=== PATIENT | female | born 1945 | race African-American/Black ===

== ENCOUNTER 2023-01-21 09:15 | Inpatient (IN) | payer OTHER, MEDICAID ==
[~2023-01-21] VITALS: Ht 165.1 cm; Wt 60.3 kg
[2023-01-21] MEDS ORDERED: MORPHINE SULFATE 2 MG/ML SYR IVP STA (09:19)
[2023-01-21] MEDS ORDERED: NACL 0.9% 500 ML IV ONE (09:20)
[2023-01-21] MEDS ORDERED: ONDANSETRON 4 MG/2 ML VIAL IVP ONE (09:20)
[2023-01-21 09:22] VITALS: BP_SYST 127; BP_SYST 68; BP_DIAS 39; BP_DIAS 65; PULSE 109; PULSE 88; RESP 18; TEMP 97.7; O2SAT 96
[2023-01-21] MEDS ORDERED: MIDODRINE 5 MG TAB PO STA (09:50)
[2023-01-21] MEDS ORDERED: ACETAMINOPHEN EXTRA STRENGTH 500 MG TAB PO ONE (10:05)
[2023-01-21 10:14] VITALS: O2SAT 100
[2023-01-21 10:17] LABS: BASOPHILS # (AUTO) 0.1 K/uL (0.00-0.22); BASOPHILS % (AUTO) 0.7 % (0.0-2.0); HEMATOCRIT 20.4 % (36-48); LYMPHOCYTES # (AUTO) 0.5 K/uL (2.5-16.5); LYMPHOCYTES % (AUTO) 4.1 % (20.5-51.1); MEAN CORPUSCULAR HEMOGLOBIN 24 pg (27-31); MEAN CORPUSCULAR HGB CONC 33 g/dL (33-37); MEAN CORPUSCULAR VOLUME 72.3 fL (80-94); MONOCYTES % (AUTO) 7.6 % (1.7-9.3); NEUTROPHILS # (AUTO) 11.7 K/uL (1.8-7.7); NEUTROPHILS % (AUTO) 87.6 % (42.2-75.2); PLATELET COUNT (AUTO) 420 K/uL (140-450); RED BLOOD CELL COUNT(AUTO) 2.82 MIL/uL (4.20-5.40); RED CELL DISTRIBUTION WIDTH 17.9 % (11.6-13.7); WHITE BLOOD COUNT (AUTO) 13.4 K/uL (4.8-10.8)
[2023-01-21 10:22] LABS: ALANINE AMINOTRANSFERASE 68 U/L (12-78); ALBUMIN 2.1 g/dL (3.4-5.0); ALKALINE PHOSPHATASE 135 U/L (50-136); ANION GAP 10.4 (8-16); ASPARTATE AMINOTRANSFERASE 285 U/L (15-37); CALCIUM 8.3 mg/dL (8.5-10.1); CARBON DIOXIDE 34.3 mmol/L (21-32); CHLORIDE 97 mmol/L (98-107); CREATININE 1.2 mg/dL (0.6-1.3); GLUCOSE 95 mg/dL (74-106); SODIUM SERUM 139 mmol/L (136-145); TOTAL BILIRUBIN 1.1 mg/dL (0.0-1.0); UREA NITROGEN, BLOOD 46 mg/dL (7-18)
[2023-01-21 10:25] LABS: POTASSIUM 2.7 mmol/L (3.5-5.1)
[2023-01-21 10:26] LABS: LACTIC ACID 1.1 mmol/L (0.4-2.0)
[2023-01-21 10:30] LABS: HEMOGLOBIN 6.6 g/dL (12.0-16.0)
[2023-01-21] MEDS ORDERED: POTASSIUM CHLORIDE 10 MEQ TABER PO ONE (10:30)
[2023-01-21] MEDS ORDERED: KCL 20 MEQ IN 100 mL PREMIX 100 ML IV ONE (10:30)
[2023-01-21] MEDS ORDERED: PIPERACILLIN/TAZOBACTAM 3.375 GM in DEXTROSE 5% 50 ML IV ONE (10:30)
[2023-01-21] MEDS ORDERED: ASPIRIN 81 MG TAB.CHEW PO ONE ×2 (10:30→13:30)
[2023-01-21] MEDS ORDERED: PIPERACILLIN/TAZOBACTAM 3.375 GM VIAL IV ONE (10:41)
[2023-01-21] MEDS ORDERED: VANCOMYCIN 1,000 MG in DEXTROSE 5% 250 ML IV ONE (10:45)
[2023-01-21 10:55] LABS: INR 1.19 (0.8-1.2); PARTIAL THROMBOPLASTIN TIME 26.6 secs (22-35.6); PROTHROMBIN TIME 12.4 secs (10.8-13.4)
[2023-01-21] MEDS ORDERED: VANCOMYCIN 1,000 MG VIAL ONE (11:56)
[2023-01-21] MEDS ORDERED: HEPARIN PER PHARMACY MC PRN ×2 (14:05→14:35)
[2023-01-21 14:07] LABS: APPEARANCE,URINE CLEAR (CLEAR); BILIRUBIN,URINE NEGATIVE (NEGATIVE); BLOOD, URINE 2+ (NEGATIVE); COLOR,URINE YELLOW (YELLOW); LEUKOCYTE ESTERASE ,URINE NEGATIVE (NEGATIVE); NITRITE, URINE NEGATIVE (NEGATIVE); PROTEIN,URINE 1+ (NEGATIVE); UGLUCOSE NEGATIVE (NEGATIVE)
[2023-01-21] MEDS: DEXT 5% /NACL 0.9% 1,000 ML IV SCH (14:30)
[2023-01-21] MEDS ORDERED: guaiFENesin DM 200/20 MG-10 ML 10 ML UDC PO PRN (14:30)
[2023-01-21] MEDS ORDERED: ACETAMINOPHEN 325 MG TAB PO PRN (14:30)
[2023-01-21] MEDS ORDERED: POTASSIUM CHLORIDE 10 MEQ TABER PO PRN (14:30)
[2023-01-21] MEDS ORDERED: DOCUSATE SODIUM 100 MG GELCAP PO PRN (14:30)
[2023-01-21] MEDS ORDERED: ZOLPIDEM 5 MG TAB PO PRN (14:30)
[2023-01-21] MEDS ORDERED: ONDANSETRON 4 MG/2 ML VIAL IM/IVP PRN (14:30)
[2023-01-21] MEDS ORDERED: QUET25TA PO (14:31)
[2023-01-21] MEDS ORDERED: LOSA25TA43 PO (14:31)
[2023-01-21] MEDS ORDERED: CILO100T2 PO (14:31)
[2023-01-21] MEDS ORDERED: PRO5 PO (14:31)
[2023-01-21] MEDS ORDERED: FURO-570 PO (14:31)
[2023-01-21] MEDS ORDERED: TRAM50TA3 PO (14:31)
[2023-01-21] MEDS ORDERED: ATOR20TA PO (14:31)
[2023-01-21] MEDS ORDERED: ATI.5 PO (14:31)
[2023-01-21] MEDS ORDERED: PANT40EC PO (14:31)
[2023-01-21] MEDS ORDERED: ONDA-188 PO (14:31)
[2023-01-21] MEDS ORDERED: ASPIRIN 81 MG TAB.CHEW ONE (14:33)
[2023-01-21] MEDS ORDERED: hePARIN / DEXT 5% PREMIX 250 ML IV SCH (14:35)
[2023-01-21 14:59] LABS: RBC,URINE 0-5 /HPF (0-5); WBC,URINE NONE SEEN /HPF (0-5)
[2023-01-21 15:00] LABS: BACTERIA,URINE FEW /HPF (None Seen); SQUAMOUS EPITHELIAL CELL,UR None Seen /LPF (0-3 (FEW))
[2023-01-21 15:17] LABS: CHOL/HDL RATIO 2.5 (1-4.5); FREE T4 (FREE THYROXINE) 1.56 ng/dL (0.76-1.46); MAGNESIUM 1.7 mg/dL (1.8-2.4); PHOSPHORUS 4.4 mg/dL (2.5-4.9); THYROID STIMULATING HORMONE 5.32 uIU/mL (0.34-3.74)
[2023-01-21] MEDS: hePARIN / DEXT 5% PREMIX 250 ML IV SCH ×2 (16:47→23:06)
[2023-01-21 18:44] VITALS: RESP 18; O2SAT 98
[2023-01-21 19:08] VITALS: PULSE 103
[2023-01-21 20:00] VITALS: BP 92/44; PULSE 107; PULSE 92; RESP 17; RESP 18; TEMP 97.2; O2SAT 100; O2SAT 98
[2023-01-21] MEDS ORDERED: PIPERACILLIN/TAZOBACTAM 2.25 GM VIAL IV ONE ×2 (20:35→23:18)
[2023-01-21] MEDS: PIPERACILLIN/TAZOBACTAM 2.25 GM in DEXTROSE 5% 50 ML IV SCH ×2 (20:45→23:34)
[2023-01-21] MEDS ORDERED: PIPERACILLIN/TAZOBACTAM 3.375 GM in DEXTROSE 5% 50 ML IV SCH (21:00)
[2023-01-21 22:38] LABS: BASOPHILS % (AUTO) 0.2 % (0.0-2.0); HEMATOCRIT 24.5 % (36-48); HEMOGLOBIN 8.1 g/dL (12.0-16.0); LYMPHOCYTES # (AUTO) 0.5 K/uL (2.5-16.5); LYMPHOCYTES % (AUTO) 3.6 % (20.5-51.1); MEAN CORPUSCULAR HEMOGLOBIN 25 pg (27-31); MEAN CORPUSCULAR HGB CONC 33 g/dL (33-37); MEAN CORPUSCULAR VOLUME 75.1 fL (80-94); MONOCYTES # (AUTO) 0.9 K/uL (0.8-1.0); MONOCYTES % (AUTO) 6.7 % (1.7-9.3); NEUTROPHILS # (AUTO) 12.6 K/uL (1.8-7.7); NEUTROPHILS % (AUTO) 89.5 % (42.2-75.2); PLATELET COUNT (AUTO) 415 K/uL (140-450); RED BLOOD CELL COUNT(AUTO) 3.26 MIL/uL (4.20-5.40); RED CELL DISTRIBUTION WIDTH 20.1 % (11.6-13.7)
[2023-01-21 22:50] LABS: INR 1.31 (0.8-1.2); PROTHROMBIN TIME 13.5 secs (10.8-13.4)
[2023-01-22] VITALS (9 sets, daily range): BP systolic 95–116; BP diastolic 46–53; PULSE 60–117; RESP 16–18; TEMP 97.4–99; O2SAT 93–100
[2023-01-22] MEDS ORDERED: PIPERACILLIN/TAZOBACTAM 2.25 GM VIAL IV ONE (05:12)
[2023-01-22 05:41] LABS: CARBON DIOXIDE 32.2 mmol/L (21-32); CHLORIDE 97 mmol/L (98-107); CREATININE 1.5 mg/dL (0.6-1.3); GLUCOSE 121 mg/dL (74-106); POTASSIUM 3.2 mmol/L (3.5-5.1); SODIUM SERUM 136 mmol/L (136-145); UREA NITROGEN, BLOOD 47 mg/dL (7-18)
[2023-01-22] MEDS: PIPERACILLIN/TAZOBACTAM 2.25 GM in DEXTROSE 5% 50 ML IV SCH ×4 (05:41→23:01)
[2023-01-22] MEDS: hePARIN / DEXT 5% PREMIX 250 ML IV SCH ×4 (05:51→19:20)
[2023-01-22] MEDS ORDERED: PANTOPRAZOLE 40 MG TABEC PO SCH (09:00)
[2023-01-22 09:06] LABS: T4 (THYROXINE) 6.8 ug/dL (4.5-12.0)
[2023-01-22 10:22] LABS: BASOPHILS # (AUTO) 0.2 K/uL (0.00-0.22); BASOPHILS % (AUTO) 1.2 % (0.0-2.0); HEMATOCRIT 25.2 % (36-48); LYMPHOCYTES # (AUTO) 0.4 K/uL (2.5-16.5); MEAN CORPUSCULAR HEMOGLOBIN 24 pg (27-31); MEAN CORPUSCULAR HGB CONC 32 g/dL (33-37); MEAN CORPUSCULAR VOLUME 76.5 fL (80-94); MONOCYTES # (AUTO) 0.8 K/uL (0.8-1.0); MONOCYTES % (AUTO) 5.6 % (1.7-9.3); NEUTROPHILS # (AUTO) 13.5 K/uL (1.8-7.7); NEUTROPHILS % (AUTO) 90.2 % (42.2-75.2); PLATELET COUNT (AUTO) 402 K/uL (140-450); RED BLOOD CELL COUNT(AUTO) 3.29 MIL/uL (4.20-5.40); RED CELL DISTRIBUTION WIDTH 19.8 % (11.6-13.7)
[2023-01-22] MEDS: DEXT 5% /NACL 0.9% 1,000 ML IV SCH (10:48)
[2023-01-22] MEDS ORDERED: traMADol 50 MG TAB PO PRN (11:15)
[2023-01-22] MEDS ORDERED: ONDANSETRON 4 MG ODT PO PRN (11:15)
[2023-01-22] MEDS ORDERED: LORazepam 0.5 MG TAB PO PRN (11:15)
[2023-01-22] MEDS: MIDODRINE 5 MG TAB PO SCH ×3 (12:27→20:15)
[2023-01-22 13:08] LABS: INR 1.13 (0.8-1.2); PARTIAL THROMBOPLASTIN TIME 39.2 secs (22-35.6); PROTHROMBIN TIME 11.8 secs (10.8-13.4)
[2023-01-22] MEDS: QUEtiapine FUMARATE 25 MG TAB PO SCH (20:15)
[2023-01-22] MEDS: PANTOPRAZOLE 40 MG TABEC PO SCH (20:15)
[2023-01-22] MEDS ORDERED: ATORVASTATIN 20 MG TAB PO SCH (21:00)
[2023-01-22] MEDS ORDERED: cilostazoL 100 MG TAB PO SCH (21:00)
[2023-01-23] VITALS (11 sets, daily range): BP systolic 107–127; BP diastolic 43–52; PULSE 86–112; RESP 17–19; TEMP 98.1–98.8; O2SAT 96–100
[2023-01-23 01:52] LABS: INR 1.18 (0.8-1.2); PARTIAL THROMBOPLASTIN TIME 47.9 secs (22-35.6); PROTHROMBIN TIME 12.3 secs (10.8-13.4)
[2023-01-23] MEDS: hePARIN / DEXT 5% PREMIX 250 ML IV SCH ×2 (02:02→21:47)
[2023-01-23] MEDS: MIDODRINE 5 MG TAB PO SCH ×3 (04:20→20:54)
[2023-01-23] MEDS: PIPERACILLIN/TAZOBACTAM 2.25 GM in DEXTROSE 5% 50 ML IV SCH (05:03)
[2023-01-23 07:54] LABS: HEMOGLOBIN 7.5 g/dL (12.0-16.0)
[2023-01-23 08:00] LABS: MEAN CORPUSCULAR HEMOGLOBIN 25 pg (27-31); MEAN CORPUSCULAR HGB CONC 32 g/dL (33-37)
[2023-01-23 08:02] LABS: HEMATOCRIT 23.3 % (36-48); MEAN CORPUSCULAR VOLUME 76.2 fL (80-94); RED BLOOD CELL COUNT(AUTO) 3.06 MIL/uL (4.20-5.40); WHITE BLOOD COUNT (AUTO) 13.6 K/uL (4.8-10.8)
[2023-01-23 08:03] LABS: ANION GAP 10.6 (8-16); BASOPHILS # (AUTO) 0.1 K/uL (0.00-0.22); BASOPHILS % (AUTO) 0.5 % (0.0-2.0); CALCIUM 8.2 mg/dL (8.5-10.1); CHLORIDE 99 mmol/L (98-107); CREATININE 1.9 mg/dL (0.6-1.3); GLUCOSE 104 mg/dL (74-106); LYMPHOCYTES # (AUTO) 0.5 K/uL (2.5-16.5); LYMPHOCYTES % (AUTO) 3.4 % (20.5-51.1); MONOCYTES # (AUTO) 0.7 K/uL (0.8-1.0); MONOCYTES % (AUTO) 5.4 % (1.7-9.3); NEUTROPHILS # (AUTO) 12.4 K/uL (1.8-7.7); NEUTROPHILS % (AUTO) 90.7 % (42.2-75.2); PLATELET COUNT (AUTO) 374 K/uL (140-450); POTASSIUM 3.6 mmol/L (3.5-5.1); RED CELL DISTRIBUTION WIDTH 20.5 % (11.6-13.7); SODIUM SERUM 138 mmol/L (136-145); UREA NITROGEN, BLOOD 55 mg/dL (7-18)
[2023-01-23 08:08] LABS: INR 1.2 (0.8-1.2); PARTIAL THROMBOPLASTIN TIME 47.9 secs (22-35.6); PROTHROMBIN TIME 12.5 secs (10.8-13.4)
[2023-01-23] MEDS: PANTOPRAZOLE 40 MG TABEC PO SCH ×2 (08:39→20:53)
[2023-01-23] MEDS: QUEtiapine FUMARATE 25 MG TAB PO SCH ×2 (08:40→20:53)
[2023-01-23] MEDS ORDERED: ECOTRIN 81 MG TABEC PO SCH (09:00)
[2023-01-23] MEDS ORDERED: ATORVASTATIN 20 MG TAB PO SCH (09:00)
[2023-01-23] MEDS ORDERED: FUROSEMIDE 40 MG/4 ML VIAL IVP SCH (09:00)
[2023-01-23] MEDS ORDERED: LOSARTAN 25 MG TAB PO SCH (09:00)
[2023-01-23] MEDS ORDERED: FUROSEMIDE 40 MG TAB PO SCH (09:00)
[2023-01-23] MEDS: HYDROcodone/APAP 7.5/325 MG 1 TAB PO PRN ×2 (09:23→22:34)
[2023-01-24] VITALS: BP 113/46; PULSE 102; PULSE 98; RESP 18; TEMP 97.6; O2SAT 99
[2023-01-24 04:00] VITALS: BP 109/48; PULSE 96; RESP 18; TEMP 98.5; O2SAT 100
[2023-01-24] MEDS: MIDODRINE 5 MG TAB PO SCH (05:00)
[2023-01-24 05:38] LABS: EOSINOPHILS # (AUTO) 0.1 K/uL (0-0.4); EOSINOPHILS % (AUTO) 0.5 % (0.0-4.0); HEMATOCRIT 23.1 % (36-48); HEMOGLOBIN 7.4 g/dL (12.0-16.0); LYMPHOCYTES # (AUTO) 0.6 K/uL (2.5-16.5); LYMPHOCYTES % (AUTO) 4.8 % (20.5-51.1); MEAN CORPUSCULAR HEMOGLOBIN 24 pg (27-31); MEAN CORPUSCULAR HGB CONC 32 g/dL (33-37); MEAN CORPUSCULAR VOLUME 76.1 fL (80-94); MONOCYTES # (AUTO) 0.7 K/uL (0.8-1.0); MONOCYTES % (AUTO) 5.9 % (1.7-9.3); NEUTROPHILS # (AUTO) 10.8 K/uL (1.8-7.7); NEUTROPHILS % (AUTO) 88.8 % (42.2-75.2); PLATELET COUNT (AUTO) 363 K/uL (140-450); RED BLOOD CELL COUNT(AUTO) 3.04 MIL/uL (4.20-5.40); RED CELL DISTRIBUTION WIDTH 20.7 % (11.6-13.7); WHITE BLOOD COUNT (AUTO) 12.1 K/uL (4.8-10.8)
[2023-01-24 06:02] LABS: ANION GAP 11.3 (8-16); CALCIUM 8.2 mg/dL (8.5-10.1); CARBON DIOXIDE 31.1 mmol/L (21-32); CHLORIDE 98 mmol/L (98-107); GLUCOSE 96 mg/dL (74-106); POTASSIUM 3.4 mmol/L (3.5-5.1); SODIUM SERUM 137 mmol/L (136-145)
[2023-01-24 06:05] LABS: UREA NITROGEN, BLOOD 62 mg/dL (7-18)
[2023-01-24 19:48] LABS: HEMOGLOBIN A1C 5.7 % (4.8-5.6)
== END 2023-01-24 06:10 | disposition short-term general hospital (02) | DRG 871 ==
LOC: MED 09:15 → MTU 14:30 → MMU 17:12
PROVIDERS: ADMIT Family Medicine; ATTEND Family Medicine
PROC: 30233N1 Transfusion of Nonautologous Red Blood Cells into Peripheral Vein, Percutaneous Approach (ICD-10-PCS; principal; 2023-01-21)
DX: A41.9 Sepsis, unspecified organism (principal); I21.4 Non-ST elevation (NSTEMI) myocardial infarction; I50.33 Acute on chronic diastolic (congestive) heart failure; J96.21 Acute and chronic respiratory failure with hypoxia; N17.0 Acute kidney failure with tubular necrosis; J18.9 Pneumonia, unspecified organism; L03.116 Cellulitis of left lower limb; J90 Pleural effusion, not elsewhere classified; I11.0 Hypertensive heart disease with heart failure; J44.9 Chronic obstructive pulmonary disease, unspecified; D64.9 Anemia, unspecified; I95.9 Hypotension, unspecified; I73.9 Peripheral vascular disease, unspecified; Z66 Do not resuscitate; D72.829 Elevated white blood cell count, unspecified; Z20.822 Contact with and (suspected) exposure to COVID-19; L89.899 Pressure ulcer of other site, unspecified stage; E78.5 Hyperlipidemia, unspecified; F41.9 Anxiety disorder, unspecified; K21.9 Gastro-esophageal reflux disease without esophagitis; F39 Unspecified mood [affective] disorder; Z87.891 Personal history of nicotine dependence; Z88.6 Allergy status to analgesic agent
CPT/HCPCS: 36415; 36430; 71045; 71275; 73630; 80048; 80053; 81001; 82150; 83036; 83605; 83690; 83735; 83880; 84100; 84436; 84439; 84443; 84479; 84484; 85025; 85610; 85730; 86886; 86900; 86901; 86920; 87040; 87081; 87086; 93005; 93970; 96365; 96368; 96375; 97163-GP; 97530; 99291; J0696; J1644; J1940; J2405; J2543; J3370; J3480; J7060; P9016; Q0092; Q0162; Q9967